=== PATIENT | male | born 1985 | race Caucasian/White ===

== ENCOUNTER 2020-08-16 17:26 | Emergency (ER) | payer OTHER ==
[~2020-08-16] VITALS: Ht 185.4 cm; Wt 99.3 kg
[2020-08-16] MEDS ORDERED: HYDROCHLOROTHIA25 MG (17:51)
[2020-08-16] MEDS ORDERED: NORVASC5 MG (17:51)
[2020-08-16] MEDS ORDERED: DEXAMETHASONE4 MG (17:52)
[2020-08-16] MEDS ORDERED: KEPPRA500 MG (17:52)
[2020-08-16] MEDS ORDERED: NAPROXEN500 MG PO (21:25)
== END 2020-08-16 21:48 | disposition home or self-care (01) ==
LOC: ED 17:26
DX: N50.812 Left testicular pain (principal); I10 Essential (primary) hypertension; Z88.0 Allergy status to penicillin; Z79.899 Other long term (current) drug therapy
CPT/HCPCS: 76870; 99284-25

== ENCOUNTER 2020-08-17 16:20 | Emergency (ER) | payer OTHER ==
[~2020-08-17] VITALS: Ht 185.4 cm; Wt 99.3 kg
[~2020-08-17 16:20] MED LIST: DEXAMETHASONE4 MG; HYDROCHLOROTHIA25 MG; KEPPRA500 MG; NAPROXEN500 MG PO; NORVASC5 MG
--- OUTSIDE RECORDS SUMMARY | 2020-08-17 16:24 | XMS ---
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 Lilian has no Care Guidelines for this patient. Luis A VISIT COUNT (12 MO.) [facility] TOTAL 2 NOTE: Visits indicate total known visits. ED/C VISIT TRACKING (12 MO.) 08/17/2020 16[facility]22 [facility]: Emergency COMPLAINT: - TESTICULAR PAIN 08/16/2020 17:28 [facility] OR TYPE: Emergency COMPLAINT: - TESTICULAR PROBLEM INPATIENT VISIT TRACKING (12 MO.) No inpatient visits to display in this time frame [id number]
== END 2020-08-17 19:58 | disposition home or self-care (01) ==
LOC: ED 16:20
DX: N28.1 Cyst of kidney, acquired (principal); R31.9 Hematuria, unspecified; I10 Essential (primary) hypertension; Z88.0 Allergy status to penicillin; Z79.899 Other long term (current) drug therapy
CPT/HCPCS: 74177; 80053; 81001; 85025; 99284-25; J7040; Q9967

== ENCOUNTER 2020-10-24 09:09 | Day surgery (SDC) | payer OTHER ==
[~2020-10-24] VITALS: Ht 185.4 cm; Wt 99.0 kg
[2020-10-24] MEDS ORDERED: ROXICODONE15 MG PO (09:27)
--- NOTE | 2020-10-24 09:30 | NUR ---
both nares swabbed for covid-19 without complication. sample taken to lab for rapid testing.
--- NOTE | 2020-10-24 13:13 | NUR ---
10/24/20 1313 Fabi Young 1257 PT ARRIVED TO PACU ON 10L VIA MASK, VSS. PT REACTIVE TO TACTILE STIMULI AND REACHING FOR HIS FACE.
--- NOTE | 2020-10-24 14:00 | NUR ---
MEDICATED PT FOR 6/10 LEFT INGUINAL PAIN PER EMAR. PT TAKING CRACKERS AND JUICE
--- NOTE | 2020-10-27 16:18 | OR ---
[facility] [address] [place], [place] [address] Signed DATE OF OPERATION: 10/24/2020 SURGEON: Deisi Lopez MD PREOPERATIVE DIAGNOSIS: 8 mm left ureteral calculus. POSTOPERATIVE DIAGNOSES: 1. No evidence of obstructing left ureteral calculus. 2. 7 mm left renal calculus. NAMES OF PROCEDURES: 1. Diagnostic cystoscopy with left retrograde pyelogram. 2. Left flexible nephro-ureteroscopy with laser lithotripsy and basket extraction of stone fragments. 3. Insertion of an indwelling ureteral stent into the left collecting system. ANESTHESIA: General. ESTIMATED BLOOD LOSS: Minimal. COMPLICATIONS: None. SPECIMENS: Stone fragments from left renal calculus, sent to the lab for stone analysis. DRAINS: A 6 x 28 cm double-J ureteral stent inserted in the left collecting system. INDICATIONS FOR PROCEDURE: Mr. Catalan is a very pleasant 35-year-old gentleman who I met earlier this year after he presented with complaints of left testicular pain and atrophy. Exam did confirm the presence of an atrophic left testicle. The plan was for him to undergo a repeat ultrasound to again confirm that blood flow was indeed adequate going to the left testicle. In the interim between his ultrasound and his next appointment, he developed severe left-sided flank pain and presented to the emergency department. He underwent a CT scan, which revealed an 8 mm obstructing left proximal ureteral calculus. He later Electronically Signed By: DEISI LOPEZ MD 10/27/20 1618 PATIENT NAME: ALYSSA CATALAN OPERATIVE REPORT DATE OF : 83 REPORT #: [id number] PHYSICIAN: DEISI LOPEZ MD PCP: DELIO GELLER REPORT IS CONFIDENTIAL AND NOT TO BE RELEASED WITHOUT AUTHORIZATION [facility] [address], [place] [address] Signed presented back to the clinic and was continued to experience severe pain in the left flank. He was, therefore, consented at that time to undergo left ureteroscopic extraction of his left ureteral calculus. Also of note, the patient has verbalized interest in having his left testicle electively removed due to persistent testicular discomfort and atrophy. We decided that this would be discussed at a later date. The patient presents today to undergo ureteroscopy with extraction of his left proximal ureteral calculus as well as management of the other stone present in his left kidney. OPERATIVE FINDINGS: 1. On cystoscopy, there was no evidence of any suspicious masses, lesions, or stones. Bilateral ureteral orifices are in their normal anatomic location. There is no evidence of any significant obstruction at the level of the prostatic urethra, which is expected at his age. 2. Left retrograde pyelogram reveals a completely patent left ureter with no evidence of any filling defects or dilation. The left kidney is mildly dilated, which is apparent via the mild calyceal blunting. There is also a filling defect in the lower pole of the left kidney. This is consistent with his known left renal calculus. 3. Flexible nephro-ureteroscopy was performed, which revealed no evidence of any stone present within the entire length of the left ureter. However, there was an approximately 7 mm stone noted in the lower pole of the left kidney. The stone was fragmented using a holmium laser at 1 and 10 settings. The stone fragmented quite easily and 100% of the stone was then extracted from the left kidney using a Zero Tip basket. At the end of the procedure, a 6 x 28 cm double-J ureteral stent was inserted into the patient's left collecting system without difficulty. A string was left attached to the stent. DESCRIPTION OF PROCEDURE: After informed consent was obtained, the patient was taken to the operating room. He was placed in the dorsal lithotomy position and his genitalia were then prepped and draped in a standard sterile fashion. Using a 30-degree lens on a 22.5-English introducer, rigid cystoscope was inserted through his urethra, into his bladder under direct visualization. Panendoscopic views of the bladder were then obtained. Please see above findings. Attention was turned to the left ureteral orifice. A cone-tipped catheter was then used to perform a left retrograde pyelogram. Please see above findings. I then cannulated the left ureteral orifice with a 0.035 Sensor wire. I pushed the wire up into the left collecting system. Placement of the wire was confirmed on fluoroscopy. Over the wire, I passed 02/04 ureteral access sheath into the left collecting system without difficulty. A repeat retrograde pyelogram was performed through the sheath. This was performed to confirm adequate placement of the sheath. The inner cannula of the sheath was then removed and then I advanced the ureteroscope through the sheath and into the left proximal ureter and left kidney. I performed a thorough diagnostic nephroscopy and noted one stone present in the lower pole of the Electronically Signed By: DEISI LOPEZ MD 10/27/20 1618 PATIENT NAME: ALYSSA CATALAN OPERATIVE REPORT DATE OF : 83 REPORT #: [id number] PHYSICIAN: DEISI LOPEZ MD PCP: DELIO GELLER REPORT IS CONFIDENTIAL AND NOT TO BE RELEASED WITHOUT AUTHORIZATION [address] [address] Signed left kidney. This stone was brought out from the lower pole and placed in the left renal pelvis where it was then fragmented using a holmium laser at 1 and 10 settings. The stone fragmented easily and 100% of the stone was then extracted using a Zero Tip basket without difficulty. Once I was satisfied that all the stone had been removed from the left kidney, I slowly withdrew the ureteroscope from the kidney and down the left ureter as far as I could go close to the left UVJ. I did not appreciate any remaining stones within the left ureter. This was consistent with my previous left retrograde pyelogram. I reinserted a Sensor wire through the sheath and into the left renal pelvis. The sheath was then removed fully intact. Over the wire, I passed a 6 x 28 cm double-J ureteral stent into the left collecting system. Once I pulled the wire, an adequate proximal coil was noted within the left renal pelvis along with an adequate distal coil on cystoscopy. The patient's bladder was then drained and the cystoscope was removed. Of note, again there was a string kept on the stent for the patient to remove on October 29, 2020. The patient will be now taken to the Postanesthesia Care Unit in stable condition. DISPOSITION: The patient's left renal calculus was successfully extracted today. He has been instructed to remove his indwelling ureteral stent using the string attached on October 29, 2020. He was sent home today with Cipro 500 mg one tablet p.o. b.i.d. for a total of 7 days, along with oxycodone 5 mg one tablet p.o. q.6 hours p.r.n. pain. He was also given oxybutynin 5 mg up to t.i.d. p.r.n. frequency for severe urinary frequency. He will be scheduled to return to clinic in January to discuss the stone analysis. Also at that time, he will have an H and P visit in preparation for elective simple left orchiectomy. MD EDDIE Horton/CHANELL /[id number] Copies: ~ Electronically Signed By: DEISI LOPEZ MD 10/27/20 1618 PATIENT NAME: ALYSSA CATALAN OPERATIVE REPORT DATE OF : 83 REPORT #: [id number] PHYSICIAN: DEISI LOPEZ MD PCP: DELIO GELLER REPORT IS CONFIDENTIAL AND NOT TO BE RELEASED WITHOUT AUTHORIZATION
== END 2020-10-24 14:30 | disposition home or self-care (01) ==
LOC: DS 09:09 → OPS 09:09 → DS 11:00 → OPS 14:30
PROVIDERS: ATTEND Urology
PROC: 0TC48ZZ Extirpation of Matter from Left Kidney Pelvis, Via Natural or Artificial Opening Endoscopic (ICD-10-PCS; principal; 2020-10-24 11:00)
PROC: 0T778DZ Dilation of Left Ureter with Intraluminal Device, Via Natural or Artificial Opening Endoscopic (ICD-10-PCS; 2020-10-24 11:00)
DX: N20.0 Calculus of kidney (principal); N50.0 Atrophy of testis; G57.82 Other specified mononeuropathies of left lower limb; K21.9 Gastro-esophageal reflux disease without esophagitis; I10 Essential (primary) hypertension; G40.909 Epilepsy, unspecified, not intractable, without status epilepticus; Z88.0 Allergy status to penicillin; Z20.822 Contact with and (suspected) exposure to COVID-19
CPT/HCPCS: 00918; 74420; C1769; C2617; C9803; J0690; J1100; J1885; J2250; J2270; J2405; J2704; J2765; J3010; J7121; Q9967; U0003

== ENCOUNTER 2021-02-27 05:40 | Day surgery (SDC) | payer OTHER ==
[~2021-02-27] VITALS: Ht 185.4 cm; Wt 99.0 kg
[~2021-02-27 05:40] MED LIST changes: +ROXICODONE15 MG PO
[2021-02-27] MEDS ORDERED: ZYRTEC10 M3 PO (06:00)
[2021-02-27] MEDS ORDERED: SINGULAIR10 MG PO (06:01)
--- NOTE | 2021-02-27 09:11 | NUR ---
02/27/21 0911 Fabi Young 0902 PT ARRIVED TO PACU ON 6L VIA MASK, VSS. PT WAKES AND DENIES PAIN AND NAUSEA. 0906 O2 REMOVED. 0910 PT SIPPING WATER AND HOB INCREASED.
--- NOTE | 2021-02-27 10:12 | NUR ---
0930: PT ARRIVES TO UNIT VIA STRETCHER FROM PACU, AWAKE AND ALERT ON ARRIVAL. VSS, RESP EVEN AND UNLABORED. CRISTO PO INTAKE, DENIES PAIN. DRESSING C/D/I. POC DISCUSSED AND PT AGREEABLE. ORANGE JUICE AND CRACKERS PROVIDED REQUESTED. NO NEEDS VOICED
--- NOTE | 2021-02-27 10:57 | NUR ---
1025: PT AWAKE AND ALERT IN STRETCHER. CONTS TO DENY PAIN AND NAUSEA. VSS, RESP EVEN AND UNLABORED. DRESSING REMANS C/D/I. DANGLES AT THE BEDSIDE, CRISTO WELL DENIES DIZZINESS AND SOB. AMBULATES TO BR WITH EOCI GUARD ASSIST. STEADY GAIT. SUCCESSFUL POSTOP VOID, 450MLS. PREPARES FOR DC WITH GUARD ASSIST. 1040: SL REMOVED WITH CATH TIP INTACT AND PRESSURE APPLIED TO SITE, WNL. DC INSTRUCTIONS PROVIDED AND DISCUSSED ORDERED. PT VOICES UNDERSTANDING AND DENIES QUESTIONS AND CONCERNS AT THIS TIME. WHEELED OFF OF UNIT BY EOCI GUARD FOR DC. NO PHYSICAL S/S OF DISTRESS AT THIS TIME
--- NOTE | 2021-02-28 18:17 | OR ---
[facility] [address] [facility] [place], [place] [address] Signed DATE OF OPERATION: 02/27/2021 SURGEON: Deisi Lopez MD PREOPERATIVE DIAGNOSES: 1. Chronic left orchialgia. 2. Atrophic left testicle. POSTOPERATIVE DIAGNOSES: 1. Chronic left orchialgia. 2. Atrophic left testicle. NAME OF PROCEDURE: Simple left orchiectomy. ANESTHESIA: General. ESTIMATED BLOOD LOSS: Minimal. COMPLICATIONS: None. SPECIMENS: Left testicle and spermatic cord. DRAINS: None. INDICATIONS FOR PROCEDURE: Mr. Catalan is a very pleasant 35-year-old gentleman, who is well-known to me. He has a prior history of left ureterolithiasis and has undergone ureteroscopy by me in the past. He is also well-known to me for chronic left orchialgia. He has been experiencing chronic left testicular pain for at least the past 5 years or so now. He reports that as a young teenager, he was hit in the left groin area by a horse. He has noticed that since that time, his testicle has decreased in size slowly over the years. It continues to be exquisitely tender to palpation and is very uncomfortable even during regular routine activities. He has requested complete removal of the left testicle and portion of the spermatic cord. I made it clear to him multiple times that removal of Electronically Signed By: DEISI LOPEZ MD 02/28/21 1817 PATIENT NAME: ALYSSA CATALAN OPERATIVE REPORT DATE OF : 83 REPORT #: [id number] PHYSICIAN: DEISI LOPEZ MD PCP: DELIO GELLER REPORT IS CONFIDENTIAL AND NOT TO BE RELEASED WITHOUT AUTHORIZATION [facility] [address] [place], [place] [address] Signed the left testicle does not necessarily guarantee that his chronic orchialgia will be resolved. He understands this and would like to go ahead and pursue removal of his painful left testicle any ways. OPERATIVE FINDINGS: 1. On visual inspection of the external genitalia, the patient has a normal circumcised phallus with a glanular meatus. His testicles are descended bilaterally. His right testicle is normal to palpation with no masses or lesions. It is also normal in size and consistency. His left testicle is noted to be significantly smaller than the right. Consistency is normal and there are no obvious palpable intratesticular masses. 2. The patient's left testicle and distal spermatic cord were removed via a transscrotal incision without complication. The patient's spermatic cord was ligated in 2 separate bundles using both stick ties and free ties of 3-0 silk. 3. At the end of the surgery, the patient's left hemiscrotum was closed in 2 layers as per routine. Overall, the procedure was performed without any complications. DESCRIPTION OF PROCEDURE: After informed consent was obtained, the patient was taken back to the operating room. [facility] room table, where general anesthesia was induced. He was then placed in a supine position and his genitalia prepped and draped in the standard sterile fashion. I first performed a thorough physical exam and noted again that the left testicle was extremely atrophic. Using a marker, I made an approximately 3-cm incision line in the superior aspect of the left hemiscrotum. A #15 blade was used to incise this 3-cm transverse line. Incision was made and the incision was taken down to the level of the tunica vaginalis. Blunt dissection was used to dissect the rest of the tunica vaginalis from the dartos and more superficial layers of the testicle. I then delivered the testicle from the left hemiscrotum. I then incised the tunica vaginalis and a very small amount of straw-colored fluid came from this area indicating a very mild physiologic hydrocele. I then incised the tunica vaginalis completely and delivered the left testicle from the tunica vaginalis. I then incised superiorly towards the spermatic cord. The spermatic fascia was successfully excised from the inner layers of the spermatic cord. I was easily able to appreciate the spermatic cord and palpate both the vascular bundle and the vas deferens bundle. Hemostat was used to divide the spermatic cord into 2 separate bundles, i.e., the vascular bundle and the vasal bundle. A clamp was used for high ligation of the left spermatic cord. The each bundle of the spermatic cord was then ligated using stick ties and free ties twice using 3-0 silk suture. The distal spermatic cord and left testicle were then excised using scissors and placed in a specimen cup to be sent to pathology for evaluation. The distal portion of the spermatic cord was then cauterized gently. I released the clamp. I did not appreciate any additional bleeding coming from the left spermatic cord once it was doubly ligated. The cord was ligated yet again using a free 3-0 silk tie. Once I was satisfied that the left cord was fully ligated, I released the Electronically Signed By: DEISI LOPEZ MD 02/28/21 1817 PATIENT NAME: ALYSSA CATALAN OPERATIVE REPORT DATE OF : [birth year] REPORT #: [id number] PHYSICIAN: DEISI LOPEZ MD PCP: DELIO GELLER REPORT IS CONFIDENTIAL AND NOT TO BE RELEASED WITHOUT AUTHORIZATION [address] [address] Signed cord and let it withdraw back into the inguinal canal. I then thoroughly irrigated the left hemiscrotum with sterile water. Electrocautery was used to achieve any hemostasis for any small bleeders in the dartos layer. The left testicle was then placed back into the left hemiscrotum. The dartos fascia was closed in a continuous running fashion using 3-0 Vicryl. The skin was then closed using vertical mattress sutures in a simple interrupted fashion using 4-0 Vicryl. The area was cleaned and dried and bacitracin as well as gauze were then placed on the left scrotal incision. This was followed by scrotal fluffs and a scrotal support. The procedure was then terminated. The patient tolerated the procedure well without any complication. He will now be transferred to the postanesthesia care unit in stable condition. DISPOSITION: The patient will be discharged back to the [facility] once he awakes from general anesthetic. He will spend the rest of the day in the infirmary at the residential, where they will be applying ice to his left hemiscrotum for 20 minutes every 2 hours. He was also sent back to residential with oxycodone 5 mg one tablet p.o. q.6 hours p.r.n. pain along with Keflex 750 mg p.o. b.i.d. for a total of 7 days. He will be scheduled return to clinic in approximately 3 weeks for his first postoperative evaluation. Deisi Lopez MD AR/MODL /[id number] Copies: ~ Electronically Signed By: DEISI LOPEZ MD 02/28/21 1817 PATIENT NAME: ALYSSA CATALAN OPERATIVE REPORT DATE OF : 83 REPORT #: [id number] PHYSICIAN: DEISI LOPEZ MD PCP: DELIO GELLER REPORT IS CONFIDENTIAL AND NOT TO BE RELEASED WITHOUT AUTHORIZATION
--- NOTE | 2021-03-08 16:23 | PATH ---
[facility] [address] [place], [place] [address] Signed SPECIMEN(S): A LEFT TESTICLE SPECIMEN SOURCE: A. LEFT TESTICLE CLINICAL HISTORY: Atrophic left testicle. Left orchiectomy. FINAL PATHOLOGIC DIAGNOSIS: Testicle, left, orchiectomy: - Testis with changes consistent with atrophy. - There is no evidence of neoplasia present in the sections. TWK:smn:C2NR MICROSCOPIC EXAMINATION: Histologic sections of all submitted blocks are examined by light microscopy. These findings, together with the gross examination, support the pathologic diagnosis. GROSS DESCRIPTION: The specimen, labeled "DS, A," and designated on the requisition "left testicle, atrophic left testicle," is received in formalin and consists of a testicle (19 grams, 4.1 x 3.5 x 2.0 cm) with attached portion of spermatic cord (2.4 cm in length x 1.7 cm in diameter) and disrupted tunica vaginalis. The specimen is inked blue. There are multiple cysts on the head of the epididymis that range in size from 0.3-0.8 cm in greatest dimension. Sectioning of the testicle reveals a brown-bower testicular parenchyma that strings with ease. No lesions or masses are grossly identified. Neurology Nurse sections are submitted as follows: Cassette Summary: (A1) Spermatic cord margin, shaved (A2) Epididymal cyst (A3) Testicle AC (under the direct supervision of a pathologist) The Gross Description was prepared using a voice recognition system. The report was reviewed for accuracy; however, sound-alike word errors, addition and/or deletions may occur. If there is any question about this report, please contact Client Services. PATIENT NAME: ALYSSA DOWNS PATHOLOGY DATE OF : 83 REPORT #: [id number] PHYSICIAN: SONA DANIEL PCP: DELIO GELLER REPORT IS CONFIDENTIAL AND NOT TO BE RELEASED WITHOUT AUTHORIZATION [facility] [address] [place], [place] [address] Signed PERFORMING LABORATORY: The technical component was performed by [facility], [address] [place] [address] (Rail Car Unloader: Diandra Montalvo MD; CLIA# [id number]). The professional [facility], [facility] [place] [address]. Diagnostician: Blanco Steiner MD Pathologist Electronically Signed 03/08/2021 Copies: ~ PATIENT NAME: ALYSSA DOWNS PATHOLOGY DATE OF : 83 REPORT #: [id number] PHYSICIAN: SONA DANIEL PCP: DELIO GELLER REPORT IS CONFIDENTIAL AND NOT TO BE RELEASED WITHOUT AUTHORIZATION
== END 2021-02-27 10:40 | disposition home or self-care (01) ==
LOC: OPS 05:40 → DS 05:40 → OPS 10:40
PROVIDERS: ATTEND Urology
PROC: 0VTB0ZZ Resection of Left Testis, Open Approach (ICD-10-PCS; principal; 2021-02-27 06:45)
DX: N50.812 Left testicular pain (principal); N50.0 Atrophy of testis; I10 Essential (primary) hypertension; G40.909 Epilepsy, unspecified, not intractable, without status epilepticus; Z88.0 Allergy status to penicillin
CPT/HCPCS: 00926; J0131; J0690; J1100; J1885; J2001; J2250; J2405; J2704; J3010; J7121